=== PATIENT | male | born 1960 | race African-American/Black ===

== ENCOUNTER 2020-06-11 17:53 | Inpatient (IN) ==
[2020-06-11 18:55] LABS: Basophils % 0.1 % (0.0-0.8); Eosinophils % 0.1 % (0.00-10.9); Hematocrit 35.7 VOL% (42.0-52.0); Hemoglobin 11.6 GM/DL (14.0-18.0); Immature Granulocytes % 0.6 %; Immature Granulocytes Absolute 0.05 #; Lymphocytes # 1.4 10*3/uL (1.4-4.0); Lymphocytes % 15.9 % (21.2-54.2); Mean Corpuscular HGB Conc 32.5 GM/DL (32-36); Mean Corpuscular Volume 82.4 FL (87-102); Mean Platelet Volume 9.3 FL (9.6-12.0); Monocytes % 22.1 % (1.7-12.7); Neutrophils % 61.2 % (38.7-73.9); Platelet Count 143 T/CUMM (130-400); Red Blood Count 4.33 MC/CUMM (3.8-5.5); Red Cell Distribution Width 14.3 % (9.3-17.3); White Blood Count 8.6 T/CUMM (4-12)
[2020-06-11 19:11] LABS: Albumin 3.1 G/DL (3.4-5.0); Bilirubin,Total 1.5 MG/DL (0.2-1.0); Calcium 8.5 MG/DL (8.5-10.1); Osmolality,Calculated 268.1 MOS/KG (273-304); Potassium 3.6 MMOL/L (3.5-5.1); Total Protein 7.5 G/DL (6.4-8.3)
[2020-06-11 19:40] LABS: Anisocytosis Slight; Hypochromasia Slight; Lymphocytes 22 % (20-55); Platelet Estimate Adequate; Segmented Neutrophils 58 % (50-85); Total Cells Counted 100
[2020-06-11] MEDS ORDERED: VANCOMYCIN INJ 1,000 MG in SODIUM CHLORIDE 0.9% 250 ML IV STA (20:36)
[2020-06-11] MEDS ORDERED: MORPHINE 4 MG/1 ML VIAL IV PRN (21:59)
[2020-06-11] MEDS ORDERED: ACETAMINOPHEN 325 MG TABLET PO PRN (21:59)
[2020-06-11] MEDS ORDERED: DEXTROSE 50% 25 GM/50 ML VIAL IV PRN (21:59)
[2020-06-11] MEDS ORDERED: hydrALAZINE 20 MG/1 ML VIAL IV PRN (21:59)
[2020-06-11] MEDS ORDERED: NICOTINE 21 MG/24 HR PATCH TRANSDERM PRN (21:59)
[2020-06-11] MEDS ORDERED: GLUCAGON 1 MG VIAL IM PRN (21:59)
[2020-06-11] MEDS ORDERED: ONDANSETRON 4 MG/2 ML VIAL IV PRN (21:59)
[2020-06-12] MEDS: SODIUM CHLORIDE 0.9% 1,000 ML IV SCH ×2 (01:18→07:39)
[2020-06-12 06:14] LABS: Basophils % 0.3 % (0.0-0.8); Eosinophils % 0.6 % (0.00-10.9); Hematocrit 32.4 VOL% (42.0-52.0); Hemoglobin 10.5 GM/DL (14.0-18.0); Immature Granulocytes % 0.3 %; Immature Granulocytes Absolute 0.02 #; Lymphocytes % 15.9 % (21.2-54.2); Mean Corpuscular HGB Conc 32.4 GM/DL (32-36); Mean Corpuscular Volume 81.2 FL (87-102); Mean Platelet Volume 9.5 FL (9.6-12.0); Monocytes % 22.6 % (1.7-12.7); Neutrophils % 60.3 % (38.7-73.9); Platelet Count 142 T/CUMM (130-400); Red Blood Count 3.99 MC/CUMM (3.8-5.5); White Blood Count 6.2 T/CUMM (4-12)
[2020-06-12 06:56] LABS: Eosinophils 2 % (0-10); Lymphocytes 16 % (20-55); Segmented Neutrophils 59 % (50-85); Total Cells Counted 100
[2020-06-12 06:57] LABS: Anisocytosis Slight; Platelet Estimate Adequate; Target Cells Few
[2020-06-12] MEDS: VANCOMYCIN INJ 1,250 MG in SODIUM CHLORIDE 0.9% 250 ML IV SCH ×2 (08:41→21:26)
[2020-06-12] MEDS: PIPERACILLIN/TAZOBACTAM 3,375 MG in SODIUM CHLORIDE 0.9% 100 ML IV SCH ×2 (11:26→18:30)
[2020-06-12] MEDS ORDERED: chlordiazePOXIDE 10 MG CAPSULE PO PRN (13:37)
[2020-06-12] MEDS: FOLIC ACID 1 MG TABLET PO SCH (17:44)
[2020-06-12] MEDS: THIAMINE 100 MG TABLET PO SCH (17:44)
[2020-06-13] MEDS: PIPERACILLIN/TAZOBACTAM 3,375 MG in SODIUM CHLORIDE 0.9% 100 ML IV SCH ×3 (03:03→18:41)
[2020-06-13 06:46] LABS: Basophils % 0.2 % (0.0-0.8); Eosinophils # 0.1 10*3/uL (0.0-0.87); Eosinophils % 1.6 % (0.00-10.9); Hematocrit 31.6 VOL% (42.0-52.0); Immature Granulocytes % 0.4 %; Immature Granulocytes Absolute 0.02 #; Lymphocytes # 0.8 10*3/uL (1.4-4.0); Lymphocytes % 16.3 % (21.2-54.2); Mean Corpuscular HGB Conc 31.6 GM/DL (32-36); Mean Corpuscular Volume 82.7 FL (87-102); Monocytes % 19.2 % (1.7-12.7); Neutrophils % 62.3 % (38.7-73.9); Platelet Count 168 T/CUMM (130-400); Red Blood Count 3.82 MC/CUMM (3.8-5.5); Red Cell Distribution Width 14.1 % (9.3-17.3); White Blood Count 4.9 T/CUMM (4-12)
[2020-06-13 07:09] LABS: Eosinophils 2 % (0-10); Hypochromasia 1+; Lymphocytes 16 % (20-55); Microcytosis 1+; Ovalocytes Slight; Platelet Estimate Adequate; Segmented Neutrophils 63 % (50-85); Total Cells Counted 100
[2020-06-13 07:12] LABS: Albumin 2.3 G/DL (3.4-5.0); Bilirubin,Total 1.1 MG/DL (0.2-1.0); Calcium 8.1 MG/DL (8.5-10.1); Osmolality,Calculated 272.7 MOS/KG (273-304); Potassium 3.4 MMOL/L (3.5-5.1); Total Protein 6.2 G/DL (6.4-8.3)
[2020-06-13] MEDS: SODIUM CHLORIDE 0.9% 1,000 ML IV SCH ×2 (08:14→12:00)
[2020-06-13] MEDS: THIAMINE 100 MG TABLET PO SCH (08:28)
[2020-06-13] MEDS: VANCOMYCIN INJ 1,250 MG in SODIUM CHLORIDE 0.9% 250 ML IV SCH ×2 (08:29→22:01)
[2020-06-13] MEDS: FOLIC ACID 1 MG TABLET PO SCH (08:29)
[2020-06-13] MEDS ORDERED: POTASSIUM CHLORIDE 20 MEQ TABLET PO ONE (09:00)
[2020-06-13] MEDS ORDERED: LORazepam 2 MG/1 ML VIAL IV PRN (15:32)
[2020-06-13] MEDS: chlordiazePOXIDE 10 MG CAPSULE PO SCH ×2 (15:44→22:01)
[2020-06-14] MEDS: PIPERACILLIN/TAZOBACTAM 3,375 MG in SODIUM CHLORIDE 0.9% 100 ML IV SCH ×3 (04:55→19:10)
[2020-06-14 06:21] LABS: Basophils % 0.3 % (0.0-0.8); Eosinophils # 0.1 10*3/uL (0.0-0.87); Eosinophils % 1.6 % (0.00-10.9); Hematocrit 33.2 VOL% (42.0-52.0); Hemoglobin 10.7 GM/DL (14.0-18.0); Immature Granulocytes % 0.3 %; Immature Granulocytes Absolute 0.02 #; Lymphocytes # 1.1 10*3/uL (1.4-4.0); Lymphocytes % 17.3 % (21.2-54.2); Mean Corpuscular HGB Conc 32.2 GM/DL (32-36); Mean Platelet Volume 9.2 FL (9.6-12.0); Monocytes % 18.3 % (1.7-12.7); Neutrophils % 62.2 % (38.7-73.9); Platelet Count 189 T/CUMM (130-400); Red Blood Count 4.05 MC/CUMM (3.8-5.5); White Blood Count 6.2 T/CUMM (4-12)
[2020-06-14 07:11] LABS: Albumin 2.4 G/DL (3.4-5.0); Osmolality,Calculated 266.1 MOS/KG (273-304); Potassium 4.3 MMOL/L (3.5-5.1); Total Protein 6.6 G/DL (6.4-8.3)
[2020-06-14 07:51] LABS: Eosinophils 1 % (0-10); Lymphocytes 18 % (20-55); Segmented Neutrophils 67 % (50-85); Total Cells Counted 100
[2020-06-14 07:52] LABS: Hypochromasia 1+; Microcytosis 1+; Platelet Estimate Adequate
[2020-06-14] MEDS ORDERED: propofoL 200 MG/20 ML VIAL IV ONE (07:57)
[2020-06-14] MEDS ORDERED: MIDAZOLAM 2 MG/2 ML VIAL ONE (07:57)
[2020-06-14] MEDS ORDERED: SEVOFLURANE 1 UNIT/15 MINUTE INH ONE (07:57)
[2020-06-14] MEDS ORDERED: fentaNYL 100 MCG/2 ML VIAL ONE ×2 (07:57→09:13)
[2020-06-14] MEDS ORDERED: LIDOCAINE 2% 5 ML VIAL ONE (07:57)
[2020-06-14] MEDS ORDERED: ONDANSETRON 4 MG/2 ML VIAL ONE (07:57)
[2020-06-14] MEDS ORDERED: LACTATED RINGERS 1,000 ML IV SCH (08:00)
[2020-06-14] MEDS ORDERED: LIDOCAINE 1% 20 ML VIAL ONE (08:08)
[2020-06-14] MEDS: THIAMINE 100 MG TABLET PO SCH (10:50)
[2020-06-14] MEDS: chlordiazePOXIDE 10 MG CAPSULE PO SCH ×3 (10:50→21:29)
[2020-06-14] MEDS: FOLIC ACID 1 MG TABLET PO SCH (10:50)
[2020-06-14] MEDS: VANCOMYCIN INJ 1,250 MG in SODIUM CHLORIDE 0.9% 250 ML IV SCH ×2 (10:51→21:31)
[2020-06-14 16:45] LABS: % Iron Saturation 9.6 % (18-50)
[2020-06-14] MEDS: PANTOPRAZOLE 40 MG TABLET PO SCH (19:09)
[2020-06-15] MEDS: PIPERACILLIN/TAZOBACTAM 3,375 MG in SODIUM CHLORIDE 0.9% 100 ML IV SCH ×3 (03:45→18:37)
[2020-06-15] MEDS: chlordiazePOXIDE 10 MG CAPSULE PO SCH ×3 (08:24→21:03)
[2020-06-15] MEDS: FOLIC ACID 1 MG TABLET PO SCH (08:24)
[2020-06-15] MEDS: PANTOPRAZOLE 40 MG TABLET PO SCH (08:24)
[2020-06-15] MEDS: THIAMINE 100 MG TABLET PO SCH (08:26)
[2020-06-15 08:29] LABS: Basophils % 0.5 % (0.0-0.8); Eosinophils # 0.1 10*3/uL (0.0-0.87); Eosinophils % 2.4 % (0.00-10.9); Hematocrit 30.1 VOL% (42.0-52.0); Hemoglobin 10.1 GM/DL (14.0-18.0); Immature Granulocytes % 0.2 %; Immature Granulocytes Absolute 0.01 #; Lymphocytes # 1.1 10*3/uL (1.4-4.0); Lymphocytes % 20.1 % (21.2-54.2); Mean Corpuscular HGB Conc 33.6 GM/DL (32-36); Mean Corpuscular Volume 80.7 FL (87-102); Mean Platelet Volume 8.3 FL (9.6-12.0); Monocytes % 15.4 % (1.7-12.7); Neutrophils % 61.4 % (38.7-73.9); Platelet Count 199 T/CUMM (130-400); Red Blood Count 3.73 MC/CUMM (3.8-5.5); Red Cell Distribution Width 14.1 % (9.3-17.3); White Blood Count 5.5 T/CUMM (4-12)
[2020-06-15] MEDS: VANCOMYCIN INJ 1,250 MG in SODIUM CHLORIDE 0.9% 250 ML IV SCH ×2 (08:30→21:03)
[2020-06-15] MEDS: ENOXAPARIN 40 MG/0.4 ML SYRINGE SUBCUT SCH (10:08)
[2020-06-15] MEDS: FERROUS SULFATE 325 MG TABLET PO SCH (17:15)
[2020-06-16] MEDS: PIPERACILLIN/TAZOBACTAM 3,375 MG in SODIUM CHLORIDE 0.9% 100 ML IV SCH ×2 (03:40→12:05)
[2020-06-16 06:15] LABS: Basophils % 0.6 % (0.0-0.8); Eosinophils # 0.2 10*3/uL (0.0-0.87); Eosinophils % 3.1 % (0.00-10.9); Hematocrit 31.6 VOL% (42.0-52.0); Hemoglobin 10.1 GM/DL (14.0-18.0); Immature Granulocytes % 0.6 %; Immature Granulocytes Absolute 0.03 #; Lymphocytes # 1.2 10*3/uL (1.4-4.0); Lymphocytes % 23.6 % (21.2-54.2); Mean Corpuscular Volume 83.2 FL (87-102); Mean Platelet Volume 8.9 FL (9.6-12.0); Monocytes % 18.5 % (1.7-12.7); Neutrophils % 53.6 % (38.7-73.9); Platelet Count 228 T/CUMM (130-400); White Blood Count 4.9 T/CUMM (4-12)
[2020-06-16 06:21] LABS: Calcium 8.5 MG/DL (8.5-10.1); Osmolality,Calculated 273.5 MOS/KG (273-304)
[2020-06-16] MEDS: ENOXAPARIN 40 MG/0.4 ML SYRINGE SUBCUT SCH (08:58)
[2020-06-16] MEDS: PANTOPRAZOLE 40 MG TABLET PO SCH (08:58)
[2020-06-16] MEDS: chlordiazePOXIDE 10 MG CAPSULE PO SCH (08:58)
[2020-06-16] MEDS: THIAMINE 100 MG TABLET PO SCH (08:58)
[2020-06-16] MEDS: FOLIC ACID 1 MG TABLET PO SCH (08:58)
[2020-06-16] MEDS: FERROUS SULFATE 325 MG TABLET PO SCH (08:58)
[2020-06-16 09:16] LABS: Eosinophils 4 % (0-10); Lymphocytes 27 % (20-55); Segmented Neutrophils 58 % (50-85); Total Cells Counted 100
[2020-06-16 09:17] LABS: Hypochromasia 1+; Microcytosis 1+
[2020-06-16 09:18] LABS: Platelet Estimate Normal
[2020-06-16] MEDS: VANCOMYCIN INJ 1,250 MG in SODIUM CHLORIDE 0.9% 250 ML IV SCH (10:15)
[2020-06-16 11:17] VITALS: BP 98/74
== END 2020-06-16 15:37 | disposition home or self-care (01) | DRG 580 ==
LOC: EDBD → EDUNIT# → N.ED 17:53 → N.3E 17:53 → SUATTDRO 06-13 17:09
PROVIDERS: ADMIT Internal Medicine; ATTEND Internal Medicine